=== PATIENT | female | born 1970 | race Caucasian/White ===

== ENCOUNTER → 2021-06-19 11:42 | Outpatient (REF) | payer BC, SELFPAY | LOC: ANHLAB 11:42 | PROVIDERS: PCP Internal Medicine; Visit Provider Nurse Practitioner | DX: C44.511 Basal cell carcinoma of skin of breast (principal) | CPT/HCPCS: 88305 ==

== ENCOUNTER → 2021-08-25 07:31 | Outpatient (REF) | payer BC, SELFPAY | LOC: ANHLAB 07:31 | PROVIDERS: PCP Internal Medicine; Visit Provider Surgery Plastic and Reconstructive Surgery | DX: C44.511 Basal cell carcinoma of skin of breast (principal) | CPT/HCPCS: 88305; 88331 ==